=== PATIENT | male | born 1965 | race Caucasian/White ===

== ENCOUNTER → 2024-09-09 08:15 | Outpatient (REF) | payer OTHER, SELFPAY | LOC: RAD 08:15 | PROVIDERS: ATTENDING PHYSICIAN Family Medicine; FAMILY PHYSICIAN Physician Assistant Medical | DX: R60.0 Localized edema (principal) | CPT/HCPCS: 93970 ==

== ENCOUNTER → 2024-09-10 13:47 | Outpatient (REF) | payer OTHER, SELFPAY | LOC: RAD 13:47 | PROVIDERS: ATTENDING PHYSICIAN Family Medicine; FAMILY PHYSICIAN Physician Assistant Medical | DX: R22.1 Localized swelling, mass and lump, neck (principal); R01.1 Cardiac murmur, unspecified | CPT/HCPCS: 76536; 93306 ==